=== PATIENT | female | born 1975 | race African-American/Black ===

== ENCOUNTER 2022-03-13 08:49 | Observation (INO) | payer OTHER ==
[~2022-03-13] VITALS: Ht 165.1 cm; Wt 110.2 kg
[~2022-03-13 08:49] MED LIST: CALCIUM PO; LISINOPRIL-HCT1 EAC2 PO; MELOXICAM7.5 MG PO; NORCO PO; OMEPRAZOLE40 MG PO; PROVENTIL HFA6.7 GM INH; SEROQUEL50 MG PO; VITAMIN C1000 MG PO; VITAMIN D3250 MC1 PO
[2022-03-13 09:24] LABS: BASOPHILS # (AUTO) 0.1 (0.0-0.1); EOSINOPHILS # (AUTO) 0.2 (0.0-0.4); EOSINOPHILS % 2.1 % (0.0-6.0); HEMATOCRIT 35.7 % (34.2-44.1); HEMOGLOBIN 11.7 g/dL (12.0-16.0); LYMPHOCYTES # (AUTO) 3.2 (1.0-3.2); LYMPHOCYTES % 35.6 % (18.0-39.1); MEAN CORPUSCULAR HEMOGLOBIN 26.7 pg (28-32); MEAN CORPUSCULAR HGB CONC 32.8 g/dL (31-35); MEAN CORPUSCULAR VOLUME 81.3 fL (81-99); MONOCYTES # (AUTO) 0.8 (0.2-0.8); MONOCYTES % 8.8 % (4.4-11.3); NEUTROPHILS # (AUTO) 4.6 (2.1-6.9); NEUTROPHILS % 52.2 % (38.7-80.0); PLATELET COUNT 299 x10e3/uL (140-360); RED BLOOD COUNT 4.39 x10e6/uL (3.6-5.1); RED CELL DISTRIBUTION WIDTH 17.6 % (11.7-14.4)
[2022-03-13 09:37] LABS: ANION GAP 13.9 mmol/L (8-16); CALCIUM 9.2 mg/dL (8.4-10.2); CREATININE, SERUM 0.9 mg/dL (0.57-1.11); POTASSIUM 3.9 mmol/L (3.5-5.1)
[2022-03-13] MEDS ORDERED: CELECOXIB 200 MG CAP ONE (10:30)
[2022-03-13] MEDS ORDERED: GABAPENTIN 300 MG CAP ONE (10:31)
[2022-03-13] MEDS ORDERED: DEXAMETHASONE SOD PHOS 10 MG/1 ML VIAL ONE (10:31)
[2022-03-13] MEDS ORDERED: SODIUM CHLORIDE 0.9% 500ML 500 ML ONE (11:09)
[2022-03-13] MEDS ORDERED: Vancomycin IV 1,000 MG ONE (11:10)
[2022-03-13] MEDS ORDERED: TRANEXAMIC ACID 20 ML ONE (11:10)
[2022-03-13] MEDS ORDERED: ROPIVACAINE 246.25 MG, EPINEPHRINE HCL 1:1000 1ML 0.5 MG, CLONIDINE HCL 0.08 MG, KETORO... INJ ONE ×5 (11:30)
[2022-03-13] MEDS ORDERED: ONDANSETRON HCL INJ 2MG/ML 2ML 2 MG/ML VIAL IV PRN ×2 (14:15→15:15)
[2022-03-13] MEDS ORDERED: ACETAMINOPHEN 650 MG SUPP PR PRN ×2 (14:15→15:15)
[2022-03-13] MEDS ORDERED: HYDROCODONE/APAP 7.5MG-325MG 1 EA TAB PO PRN (14:15)
[2022-03-13] MEDS ORDERED: DOCUSATE SODIUM 100 MG CAP PO PRN (14:15)
[2022-03-13] MEDS ORDERED: DIPHENHYDRAMINE HCL INJ 50 MG/ML VIAL IV PRN ×2 (14:15→15:15)
[2022-03-13] MEDS: SODIUM CHLORIDE 0.9% 1000ML 1,000 ML IV SCH (14:15)
[2022-03-13] MEDS ORDERED: ZOLPIDEM TARTRATE 5 MG TAB PO PRN ×2 (14:15→15:15)
[2022-03-13] MEDS ORDERED: HYDROCODONE/APAP 5MG-325MG TAB PO PRN ×2 (14:15→15:15)
[2022-03-13] MEDS ORDERED: HYDROMORPHONE 1MG/1ML INJ ONE (14:51)
[2022-03-13 16:27] VITALS: BP 131/90
[2022-03-13 16:45] VITALS: BP 131/90
[2022-03-13 16:53] VITALS: BP 131/90
[2022-03-13] MEDS ORDERED: ASPIRIN 325 MG TAB PO SCH (17:00)
[2022-03-13] MEDS ORDERED: CELECOXIB 100 MG CAP PO SCH (17:00)
[2022-03-13] MEDS ORDERED: ACETAMINOPHEN 1000 MG/100 ML IV PRN (18:00)
[2022-03-13] MEDS: ASPIRIN 325 MG TAB PO SCH (18:00)
[2022-03-13] MEDS: CELECOXIB 100 MG CAP PO SCH (18:00)
[2022-03-13 18:22] VITALS: BP 131/90
[2022-03-13 20:00] VITALS: BP 131/90
[2022-03-13] MEDS ORDERED: SODIUM CHLORIDE 0.9% 100 ML ONE (20:17)
[2022-03-13] MEDS: HYDROCODONE/APAP 7.5MG-325MG 1 EA TAB PO PRN ×2 (20:20→21:00)
[2022-03-13 20:55] VITALS: BP 126/89
[2022-03-14] VITALS: BP 130/97
[2022-03-14] MEDS: SODIUM CHLORIDE 0.9% 1000ML 1,000 ML IV SCH ×2 (00:15→10:15)
[2022-03-14] MEDS: HYDROCODONE/APAP 7.5MG-325MG 1 EA TAB PO PRN ×3 (01:21→14:05)
[2022-03-14 04:33] VITALS: BP 110/79
[2022-03-14 05:31] LABS: HEMATOCRIT 30.7 % (34.2-44.1)
[2022-03-14] MEDS: ASPIRIN 325 MG TAB PO SCH (08:58)
[2022-03-14] MEDS: CELECOXIB 100 MG CAP PO SCH (08:58)
[2022-03-14 09:19] VITALS: BP 118/62
[2022-03-14] MEDS ORDERED: ONDANSETRON HCL 4 MG ORAL DISINTEGRATING TAB PO PRN (11:00)
[2022-03-14] MEDS ORDERED: CYCLOBENZAPRINE10 MG PO (11:49)
[2022-03-14] MEDS ORDERED: ASPIRIN81 MG PO (11:49)
[2022-03-14] MEDS ORDERED: ACETAMINOPHEN 1000 MG/100 ML IV PRN (14:15)
[2022-03-14] MEDS ORDERED: POVIDONE IODINE 0.05% 0.05 % ML PO ONE (17:07)
[2022-03-14] MEDS ORDERED: KETOROLAC TROMETHAMINE 30 MG/ML VIAL IV ONE (17:07)
[2022-03-14] MEDS ORDERED: NEOSTIGMINE 1 MG/ML 10ML VIAL IV ONE (17:07)
[2022-03-14] MEDS ORDERED: METHOCARBAMOL 100MG/1ML 10ML VIAL IV ONE (17:07)
[2022-03-14] MEDS ORDERED: ACETAMINOPHEN 1000 MG/100 ML IV ONE (17:07)
[2022-03-14] MEDS ORDERED: ROCURONIUM BROMIDE 10 MG/ML 5ML VIAL IV ONE (17:07)
[2022-03-14] MEDS ORDERED: ONDANSETRON HCL INJ 2MG/ML 2ML 2 MG/ML VIAL IV ONE (17:07)
[2022-03-14] MEDS ORDERED: GLYCOPYRROLATE INJ 0.2 MG/ML VIAL IV ONE (17:07)
[2022-03-14] MEDS ORDERED: LIDOCAINE HCL 2% LOCAL INJ 5 ML SDV VIAL INJ ONE (17:07)
[2022-03-14] MEDS ORDERED: DEXAMETHASONE SOD PHOS INJ 4 MG/ML SDV IV ONE (17:07)
[2022-03-14] MEDS ORDERED: PROPOFOL IV EMULSION 10 MG/ML 20 ML VIAL IV ONE (17:07)
== END 2022-03-14 17:08 | disposition home or self-care (01) ==
LOC: OR 08:49 → PACU V 14:12 → MED/SURG 16:08
PROVIDERS: ADMIT Internal Medicine; ATTEND Internal Medicine
DX: M16.0 Bilateral primary osteoarthritis of hip (principal); Z01.818 Encounter for other preprocedural examination; Z20.822 Contact with and (suspected) exposure to COVID-19; I10 Essential (primary) hypertension; J45.909 Unspecified asthma, uncomplicated; K21.9 Gastro-esophageal reflux disease without esophagitis; E66.01 Morbid (severe) obesity due to excess calories; Z68.41 Body mass index [BMI] 40.0-44.9, adult; F41.9 Anxiety disorder, unspecified; Z21 Asymptomatic human immunodeficiency virus [HIV] infection status; E78.5 Hyperlipidemia, unspecified; Z79.899 Other long term (current) drug therapy; Z88.0 Allergy status to penicillin
CPT/HCPCS: 0223U; 36415; 72170; 80048; 81025; 82948; 85014; 85018; 85025; 86850; 86900; 86920; 93005; 94799; C1713; C1776; G0378; J0171; J0690; J1100; J1170; J1885; J2001; J2405; J2710; J2795; J2800; J3370; J7040; J7050

== ENCOUNTER 2022-03-14 22:32 | Emergency (ER) | payer OTHER ==
[~2022-03-14] VITALS: Ht 165.1 cm; Wt 110.2 kg
[~2022-03-14 22:32] MED LIST changes: +ASPIRIN81 MG PO; +CYCLOBENZAPRINE10 MG PO
[2022-03-14] MEDS ORDERED: METHOCARBAMOL 750 MG TAB PO ONE (23:00)
[2022-03-14 23:06] LABS: BASOPHILS # (AUTO) 0.1 (0.0-0.1); BASOPHILS % 0.6 % (0.0-1.0); EOSINOPHILS % 0.4 % (0.0-6.0); HEMATOCRIT 30.8 % (34.2-44.1); HEMOGLOBIN 9.6 g/dL (12.0-16.0); LYMPHOCYTES # (AUTO) 2.6 (1.0-3.2); LYMPHOCYTES % 23.5 % (18.0-39.1); MEAN CORPUSCULAR HEMOGLOBIN 26.3 pg (28-32); MEAN CORPUSCULAR HGB CONC 31.2 g/dL (31-35); MEAN CORPUSCULAR VOLUME 84.4 fL (81-99); MONOCYTES # (AUTO) 1.1 (0.2-0.8); NEUTROPHILS # (AUTO) 7.3 (2.1-6.9); NEUTROPHILS % 65.1 % (38.7-80.0); PLATELET COUNT 253 x10e3/uL (140-360); RED BLOOD COUNT 3.65 x10e6/uL (3.6-5.1); RED CELL DISTRIBUTION WIDTH 17.6 % (11.7-14.4)
[2022-03-14 23:23] LABS: ALBUMIN 3.2 g/dL (3.5-5.0); ALBUMIN/GLOBULIN RATIO 0.9 (0.8-2.0); ANION GAP 13.4 mmol/L (8-16); CALCIUM 8.3 mg/dL (8.4-10.2); CREATININE, SERUM 0.86 mg/dL (0.57-1.11); POTASSIUM 3.4 mmol/L (3.5-5.1)
[2022-03-15] MEDS ORDERED: ONDANSETRON HCL INJ 2MG/ML 2ML 2 MG/ML VIAL IV STA (01:01)
[2022-03-15] MEDS ORDERED: Morphine 4mg INJECTION 4 MG/ML INJ IV ONE (01:15)
== END 2022-03-15 01:58 | disposition home or self-care (01) ==
LOC: ER 22:34
DX: M25.551 Pain in right hip (principal); R25.2 Cramp and spasm; R05.9 Cough, unspecified; I10 Essential (primary) hypertension; E78.5 Hyperlipidemia, unspecified; J45.909 Unspecified asthma, uncomplicated; B20 Human immunodeficiency virus [HIV] disease; F41.9 Anxiety disorder, unspecified; F17.210 Nicotine dependence, cigarettes, uncomplicated
CPT/HCPCS: 36415; 73501; 80053; 85025; 99283; J2270; J2405